=== PATIENT | female | born 1990 | race Caucasian/White ===

== ENCOUNTER 2019-04-16 17:25 | Observation (INO) | payer BC ==
[~2019-04-16] VITALS: Ht 157.5 cm; Wt 60.3 kg
== END 2019-04-16 23:15 | disposition home or self-care (01) ==
LOC: SPU 17:25
PROVIDERS: ADMIT Specialist; ATTEND Specialist
DX: O42.912 Preterm premature rupture of membranes, unspecified as to length of time between rupture and onset of labor, second trimester (principal); Z3A.19 19 weeks gestation of pregnancy
CPT/HCPCS: 76805; 81002; G0378